=== PATIENT | female | born 1950 | race Caucasian/White ===

== ENCOUNTER 2016-10-04 05:36 | Inpatient (IN) | payer BC, OTHER ==
--- NOTE | 2016-10-04 05:38 | PDOC ---
History of Present Illness <LuisanaCornelio - Last Filed: 10/04/16 18:25> - General History Source: Patient Exam Limitations: No Limitations - History of Present Illness Initial Comments: 10/04/16 06:15 This is a 66-year-old female comes in complaining of severe epigastric abdominal pain. Patient has a history of a LAP-BAND that was placed approximately 8 years ago. Patient had an admission approximately one year ago. Patient after eating a large meal had acute onset of epigastric pain associated with vomiting. Patient denies any diarrhea. Patient said she had a revision of her lap band approximately year ago. Patient denies any history of similar symptoms in the past. PAST MEDICAL HISTORY: As per history of present illness PAST SURGICAL HISTORY: no significant history FAMILY HISTORY: no pertinant history SOCIAL HISTORY: Pt lives with family and is employed. MEDICATIONS: reviewed ALLERGIES: As per nursing notes Review of Systems General: No fevers or chills, no weakness, no weight loss HEENT: No change in vision. No sore throat,. No ear pain CardioVascular: No chest pain or shortness of breath Respiratory:No cough, or wheezing. Gastrointestinal: + nausea, + vomitting, no diarrhea or constipation, No rectal bleeding Genitourinary: No dysuria, hematuria, or frequency Musculoskeletal: No joint or muscle pain or swelling Neurologic: No headache, vertigo, dizziness or loss of consciousness Psychiatric: nor depression Skin: No rashes or easy bruising Endocrine: no increased thirst or abnormal weight change Allergic: no skin or latex allergy All other systems reviewed and normal Exam: General: Well-nourished well-developed individual, no acute distress HEENT: Throat: Normal, tonsils normal, no erythema or exudate Neck: Supple, no meningeal signs, no lymphadenopathy Eyes::Pupils equal reactive and round, extraocular motion intact Chest: Nontender to palpation Cardiac: S1-S2 normal, regular rate and rhythm, no murmurs rubs or gallops Respiratory: Lungs clear to auscultation bilateral Abdomen: Soft, decreased bowel sounds, tenderness on palpation epigastric area with some mild guarding and no rebound. Extremities: Warm, dry, no cyanosis, clubbing, or edema Skin: No rashes Neuro: Alert and oriented x3, nonfocal exam, grossly intact, normal gait Psych: Normal mood and affect CT scan shows 2 stones approximately 7 mm and distal common bile duct with a 1 cm duct diameter the gastric band is in good position there is some periportal edema otherwise is no bowel obstruction free fluid or free air. Assessment and plan: This is a 66-year-old female with abdominal pain who comes in for evaluation. Patient has an elevated white count of 16.6 with a left shift. Patient CAT scan shows 2 stones in the distal common bile duct. Patient's symptoms are most likely secondary to these gallstones. Patient has elevated white count of 16.6 with approximately 12 hours now of ongoing pain. Patient will be in need to be admitted to an inpatient bed. Patient given Zosyn here in the emergency room to cover her for acute cholecystitis Patient surgeon was called and they waiting for call back however changes shift resulted in me transferring the patient to Dr. Justin Tai or talking to the patient surgeon. Case discussed in detail with oncoming Emergency Physician including history, physical exam and ancillary studies. Oncoming Emergency Physician has assumed care for the patient and will complete the evaluation and treatment. Patient is aware of the plan. Pt is clinically unchanged and stable. <Evangelina Andrews I - Last Filed: 10/04/16 23:54> - General Stated Complaint: STOMACH PAIN Time Seen by Provider: 10/04/16 05:38 Past History <Cornelio Lieberman - Last Filed: 10/04/16 18:25> - Past Medical History Anemia: No Asthma: No Cancer: No Cardiac Disorders: No CVA: No COPD: No CHF: No Dementia: No Diabetes: No GI Disorders: No Disorders: No HTN: No Hypercholesterolemia: No Liver Disease: No Seizures: No Thyroid Disease: No - Surgical History Abdominal Surgery: Yes (HIATAL HERNIA REPAIR) Cholecystectomy: Yes GI Surgery: Yes (LAP BAND) - Psycho/Social/Smoking Cessation Hx Anxiety: No Suicidal Ideation: No Smoking History: Never smoked Hx Alcohol Use: Yes (OCCASIONAL) Drug/Substance Use Hx: No Substance Use Type: None <Evangelina Andrews I - Last Filed: 10/04/16 23:54> - Past Medical History Allergies/Adverse Reactions: Allergies Allergy/AdvReac Type Severity Reaction Status Date / Time pepper AdvReac Severe Verified 10/04/16 05:40 Home Medications: Ambulatory Orders Meloxicam [Mobic] 15 mg PO DAILY 10/04/16 Oxycodone HCl/Acetaminophen [Percocet 5-325 mg Tablet] 1 tab PO BID 10/04/16 Pantoprazole Sodium [Protonix] 40 mg PO DAILY 10/04/16 *Physical Exam - Vital Signs Last Vital Signs Temp Pulse Resp BP Pulse Ox 98.7 F 71 17 121/61 98 10/04/16 07:17 10/04/16 08:25 10/04/16 08:25 10/04/16 08:25 10/04/16 08:25 <Cornelio Lieberman - Last Filed: 10/04/16 18:25> ED Treatment Course - LABORATORY CBC & Chemistry Diagram: 10/04/16 06:00 10/04/16 06:00 - ADDITIONAL ORDERS Additional order review: Laboratory Results 10/04/16 06:00 Sodium 139 Potassium 3.8 Chloride 103 Carbon Dioxide 27 Anion Gap 9 BUN 14 D Creatinine 0.7 D Creat Clearance w eGFR > 60 Random Glucose 151 H D Calcium 9.1 Total Bilirubin 1.9 H D AST 597 H D ALT 331 H D Alkaline Phosphatase 175 H D Total Protein 7.0 D Albumin 3.7 D Lipase 144 10/04/16 06:00 RBC 4.97 MCV 81.3 MCHC 32.5 RDW 13.7 MPV 9.4 Neutrophils % 90.2 H D Lymphocytes % 3.5 L D Monocytes % 6.0 Eosinophils % 0.1 D Basophils % 0.2 - RADIOLOGY Radiology Studies Ordered: Category Date Time Status CHEST X-RAY PORTABLE* [RAD] Stat Radiology 10/04/16 08:00 Ordered - Medications Given in the ED: ED Medications Discontinued Medications Generic Name Dose Route Start Last Admin Trade Name Kevinq PRN Reason Stop Dose Admin Acetaminophen 1,000 mg 10/04/16 05:53 10/04/16 05:58 Ofirmev Injection - IVPB 10/04/16 05:54 1,000 mg ONCE ONE Administration Sodium Chloride 1,000 mls @ 1,000 mls/hr 10/04/16 06:14 10/04/16 06:25 Normal Saline - IV 10/04/16 07:13 1,000 mls/hr .Q1H ONE Administration Ketorolac Tromethamine 30 mg 10/04/16 06:31 10/04/16 06:41 Toradol Injection - IVPUSH 10/04/16 06:32 30 mg ONCE ONE Administration Morphine Sulfate 2 mg 10/04/16 06:14 10/04/16 06:40 Morphine Injection - IVPUSH 10/04/16 06:15 1 mg ONCE ONE Administration Morphine Sulfate 2 mg 10/04/16 07:32 10/04/16 07:38 Morphine Injection - IVPUSH 10/04/16 07:33 1 mg ONCE ONE Administration Ondansetron HCl 4 mg 10/04/16 06:14 10/04/16 06:40 Zofran Injection IVPUSH 10/04/16 06:15 4 mg ONCE ONE Administration Piperacillin Sod/Tazobactam Sod 3.375 gm 10/04/16 06:35 10/04/16 06:57 Zosyn 3.375gm Ivpb (Pre-Docked) IVPB 10/04/16 06:36 3.375 gm ONCE STA Administration Protocol <Cornelio Lieberman - Last Filed: 10/04/16 18:25> - LABORATORY CBC & Chemistry Diagram: 10/04/16 21:33 10/04/16 06:00 <Evangelina Andrews I - Last Filed: 10/04/16 23:54> Medical Decision Making - Medical Decision Making 10/04/16 08:[address] Graham, hospitalist. She will admit patient to [facility]. She is aware of the concern with cholangitis, and sepsis. Spoke with Dr. Leo, from gastroenterology. He is aware of the patient and will consult upon arrival at [facility]. The patient has received intravenous antibiotics. Her pain is controlled with morphine, and her pressure has been stabilized using small incremental doses of morphine as needed. She is also received intravenous Tylenol and Toradol. Dr. Hartley saw the patient in the emergency room. He is in communication with Dr. Roberts from the ICU. They are aware that the patient will be admitted to telemetry, but that ICU may be necessary if the condition worsens. Patient appears stable, clinically and hemodynamically, at present. Minimal pain at transport to [facility]. <Cornelio Lieberman - Last Filed: 10/04/16 18:25> *DC/Admit/Observation/Transfer - Discharge Dispostion Admit: Yes <Cornelio Lieberman - Last Filed: 10/04/16 18:25> <Evangelina Andrews I - Last Filed: 10/04/16 23:54> Diagnosis at time of Disposition: Cholelithiasis and acute cholecystitis with obstruction
[2016-10-04 05:46] VITALS: BMI 36.7
[2016-10-04] MEDS ORDERED: ACETAMINOPHEN INJECTION 100 ML IVPB ONE (05:53)
[2016-10-04] MEDS ORDERED: ACETAMINOPHEN 1000 MG/100 ML VIAL (NON FORMULARY) IVPB ONE (05:53)
[2016-10-04] MEDS ORDERED: SODIUM CHLORIDE 1,000 ML IV ONE (06:14)
[2016-10-04] MEDS ORDERED: ONDANSETRON 4 MG/2 ML VIAL IVPUSH ONE (06:14)
[2016-10-04] MEDS ORDERED: morphine CARPU-JECT 2 MG/1 ML DISP.SYRIN IVPUSH ONE ×4 (06:14→14:00)
[2016-10-04] MEDS ORDERED: ONDANSETRON 4 MG/2 ML VIAL ONE (06:21)
[2016-10-04] MEDS ORDERED: morphine CARPU-JECT 2 MG/1 ML DISP.SYRIN ONE ×2 (06:21→09:30)
[2016-10-04 06:28] LABS: BASOPHIL 0.2 % (0-2.0); EOSINOPHIL 0.1 % (0-4.5); MCH 26.4 pg (25.7-33.7); MCHC 32.5 g/dl (32.0-36.0); MEAN CELL VOLUME 81.3 fl (80-96); MEAN PLT VOLUME 9.4 fl (7.5-11.1); NEUTROPHILS 90.2 % (42.8-82.8); PLATELET COUNT 234 K/MM3 (134-434); RDW 13.7 % (11.6-15.6)
[2016-10-04] MEDS ORDERED: KETOROLAC TROMETHAMINE 30 MG/1 ML VIAL IVPUSH ONE ×2 (06:31→10:50)
[2016-10-04] MEDS ORDERED: KETOROLAC TROMETHAMINE 30 MG/1 ML VIAL ONE (06:31)
[2016-10-04] MEDS ORDERED: PIPERACILLIN/TAZOB 3.375 GM/50 ML PRE-DOCKED IVPB STA (06:35)
[2016-10-04] MEDS ORDERED: PIPERACILLIN/TAZOBACTAM 3.375 GM VIAL IVPB ONE (06:45)
[2016-10-04 06:51] LABS: ALBUMIN 3.7 g/dl (3.4-5.0); ALK PHOS 175 U/L (45-117); ANION GAP 9 (8-16); BILIRUBIN,TOTAL 1.9 mg/dL (0.2-1.0); CALCIUM 9.1 mg/dL (8.5-10.1); CO2 27 mmol/L (21-32); CREATININE 0.7 mg/dL (0.55-1.02); GLUCOSE,RANDOM 151 mg/dL (74-106); SGPT/ALT 331 U/L (12-78)
[2016-10-04 06:55] LABS: SGOT/AST 597 U/L (15-37)
[2016-10-04] MEDS ORDERED: PANTOPRAZOLE SODIUM 40 MG in SODIUM CHLORIDE 100 ML IVPB ONE (08:05)
[2016-10-04] MEDS ORDERED: PANTOPRAZOLE SODIUM 40 MG VIAL ONE (08:35)
[2016-10-04] MEDS ORDERED: SODIUM CHLORIDE 250 ML IV STA (10:41)
[2016-10-04] MEDS: SODIUM CHLORIDE 1,000 ML IV SCH (11:19)
[2016-10-04 11:29] LABS: URINE APPEARANCE Clear; URINE BILIRUBIN 2+ (NEGATIVE); URINE GLUCOSE (UA) Negative (NEGATIVE); URINE KETONE Trace (NEGATIVE); URINE LEUK ESTERASE Negative (NEGATIVE); URINE NITRITE Negative (NEGATIVE); URINE UROBILINOGEN 1.0 E.U/dl (0.2-1.0)
[2016-10-04 11:31] LABS: URINE BACTERIA FEW /hpf (NEGATIVE); URINE BLOOD 1+ (NEGATIVE); URINE COLOR YELLOW; URINE PROTEIN 1+ (NEGATIVE); URINE WBC 0-3 (3-5)
[2016-10-04] MEDS ORDERED: SODIUM CHLORIDE 1,000 ML IV STA (14:07)
[2016-10-04] MEDS ORDERED: PIPERACILLIN/TAZOB 3.375 GM/50 ML PRE-DOCKED IVPB ONE (14:30)
--- NOTE | 2016-10-04 14:37 | HP ---
CHIEF COMPLAINT: sudden onset epigastric pain with N/V/D PCP: HISTORY OF PRESENT ILLNESS: This is a 66yo woman with PMH lap band '10, lap choley 08/23 and b/l TKR who presented to ED with severe epigastric abdominal pain. Patient had an admission approximately one year ago. Patient after eating a large meal had acute onset of epigastric pain associated with vomiting. Patient denies any diarrhea. Patient said she had a revision of her lap band approximately year ago. Patient denies any history of similar symptoms in the past. ER course was notable for: (1) CTAP- choledocholithiasis with CBD dilitation (2) Lactic acidosis (3) Transaminitis Recent Travel: denies PAST MEDICAL HISTORY: see HPI PAST SURGICAL HISTORY: see HPI Social History: Smoking: denies Alcohol: social Drugs: denies Occupation: homemaker Family History: Allergies pepper Adverse Reaction (Severe, Verified 10/04/16 05:40) RAW BLACK PEPPER HOT FLASHES HOME MEDICATIONS: Home Medications 3 Medication Instructions Recorded Meloxicam [Mobic] 15 mg PO DAILY 10/04/16 Oxycodone HCl/Acetaminophen 1 tab PO BID 10/04/16 [Percocet 5-325 mg Tablet] Pantoprazole Sodium [Protonix] 40 mg PO DAILY 10/04/16 REVIEW OF SYSTEMS CONSTITUTIONAL: Present- chills Absent: fever, diaphoresis, generalized weakness, malaise, loss of appetite, weight change HEENT: Absent: rhinorrhea, nasal congestion, throat pain, throat swelling, difficulty swallowing, mouth swelling, ear pain, eye pain, visual changes CARDIOVASCULAR: Absent: chest pain, syncope, palpitations, irregular heart rate, lightheadedness , peripheral edema RESPIRATORY: Present- shortness of breath Absent: cough, dyspnea with exertion, orthopnea, wheezing, stridor, hemoptysis GASTROINTESTINAL: Present- abdominal pain, nausea, vomiting, diarrhea Absent: abdominal distension, constipation, melena, hematochezia GENITOURINARY: Absent: dysuria, frequency, urgency, hesitancy, hematuria, flank pain, genital pain MUSCULOSKELETAL: Absent: myalgia, arthralgia, joint swelling, back pain, neck pain SKIN: Absent: rash, itching, pallor HEMATOLOGIC/IMMUNOLOGIC: Absent: easy bleeding, easy bruising, lymphadenopathy, frequent infections ENDOCRINE: Absent: unexplained weight gain, unexplained weight loss, heat intolerance, cold intolerance NEUROLOGIC: Absent: headache, focal weakness or paresthesias, dizziness, unsteady gait, seizure, mental status changes, bladder or bowel incontinence PSYCHIATRIC: Absent: anxiety, depression, suicidal or homicidal ideation, hallucinations. PHYSICAL EXAMINATION Vital Signs - 24 hr 3 10/04/16 13:30 Temperature 99.4 F Pulse Rate 68 Respiratory 14 Rate Blood Pressure 98/62 GENERAL: Awake, alert, and fully oriented, in no acute distress. HEAD: Normal with no signs of trauma. EYES: Pupils equal, round and reactive to light, extraocular movements intact, sclera anicteric, conjunctiva clear. No lid lag. EARS, NOSE, THROAT: Ears normal, nares patent, oropharynx clear without exudates. Moist mucous membranes. NECK: Normal range of motion, supple without lymphadenopathy, JVD, or masses. LUNGS: Breath sounds equal, clear to auscultation bilaterally. No wheezes, and no crackles. No accessory muscle use. HEART: Regular rate and rhythm, normal S1 and S2 without murmur, rub or gallop. ABDOMEN: Soft, not distended, normoactive bowel sounds, no guarding, no rebound , no masses. No hepatomegaly or splenomegaly. Tender to upper abdomen. MUSCULOSKELETAL: Normal range of motion at all joints. No bony deformities or tenderness. No CVA tenderness. UPPER EXTREMITIES: 2+ pulses, warm, well-perfused. No cyanosis. No clubbing. No peripheral edema. LOWER EXTREMITIES: 2+ pulses, warm, well-perfused. No calf tenderness. No peripheral edema. NEUROLOGICAL: Cranial nerves II-XII intact. Normal speech. Normal gait. PSYCHIATRIC: Cooperative. Good eye contact. Appropriate mood and affect. SKIN: Warm, dry, normal turgor, no rashes or lesions noted, normal capillary refill. ASSESSMENT/PLAN: A: 66 yo woman with cholangitis s/p ERCP 10/04. GI unsure if all stones were removed during sphincterotomy d/t bleeding at site. P: 1. Cholangitis - LR@200 - NPO tonight - Zosyn 3.375 - Flagyl 500 - GI following - ID Luiz consulted - trend LFT's with lipase - trend CBC - lactic acid- 3.3 will continue to monitor 2. Sepsis - trend CBC - strict I&O - abx as above - ID consult - trend lactate - telemetry - blood and urine cx pending - LR@200 - VS q2h 3. Lactic Acidosis - trend lactate 4. F/E/N - LR@200 - NPO tonight - advance diet per GI - replete prn 5. PPX - OOB as tolerated - PT Dispo- pt requires inpatient care for acute medical condition Visit type - Emergency Visit Emergency Visit: Yes ED Registration Date: 10/04/16 Care time: The patient presented to the Emergency Department on the above date and was hospitalized for further evaluation of their emergent condition. - New Patient This patient is new to me today: Yes Date on this admission: 10/04/16 - Critical Care Critical Care patient: No
[2016-10-04] MEDS ORDERED: ROCURONIUM BROMIDE 50 MG/5 ML VIAL ONE ×2 (14:39→15:18)
[2016-10-04] MEDS ORDERED: PROPOFOL 20 ML ONE (14:39)
[2016-10-04] MEDS ORDERED: ePHEDrine SULFATE 50 MG/1 ML AMPULE ONE (14:39)
--- NOTE | 2016-10-04 14:40 | CON.PULM ---
Consult Consult Specialty:: PULMONARY Referred by:: Hospitalist Reason for Consultation:: sepsis - History of Present Illness Chief Complaint: abdominal pain History of Present Illness: 66yo female with h/o lap-band, cholecystectomy who presents with sudden onset of abdominal pain after eating dinner yesterday. Pain more right upper quadrant associated with nausea, vomiting and diarrhea. Subjective fevers and chills. Denies any shortness of breath or chest pain. Denies any prior episodes, did not eat anything out of the ordinary. No one else with similar symptoms. CT A/P showing common bile duct prominence as well as cholelithiasis, received IVF and antibiotics, transferred to telemetry for further monitoring. Bloodwork significant for elevated LFTs, lactic acidosis and leukocytosis. - History Source History Provided By: Patient, Significant Other, Medical Record Limitations to Obtaining History: No Limitations - Past Medical History Gastrointestinal: Yes: Hiatal Hernia, Other (Morbid obesity, History of cholecystitis) Hepatobiliary: Yes: Cholecystitis Dermatology: Yes: Psoriasis - Past Surgical History Past Surgical History: Yes: Bariatric Surgery (Lap band), Hernia Repair (Hiatal hernia repair) - Alcohol/Substance Use Hx Alcohol Use: Yes (OCCASIONAL) - Smoking History Smoking history: Never smoked Have you smoked in the past 12 months: No - Social History ADL: Independent Home Medications - Allergies Allergies/Adverse Reactions: Allergies Allergy/AdvReac Type Severity Reaction Status Date / Time pepper AdvReac Severe Verified 10/04/16 05:40 - Home Medications Home Medications: Ambulatory Orders Meloxicam [Mobic] 15 mg PO DAILY 10/04/16 Oxycodone HCl/Acetaminophen [Percocet 5-325 mg Tablet] 1 tab PO BID 10/04/16 Pantoprazole Sodium [Protonix] 40 mg PO DAILY 10/04/16 Review of Systems - Review of Systems Constitutional: reports: Chills, Fever, Malaise Eyes: denies: Recent Change in Vision HENT: denies: Nasal Congestion, Throat Pain Neck: denies: Stiffness, Tenderness Cardiovascular: denies: Chest Pain, Palpitations, Shortness of Breath Respiratory: denies: Cough, Hemoptysis, SOB on Exertion, Wheezing Gastrointestinal: reports: Abdominal Pain, Diarrhea, Nausea, Vomiting Genitourinary: denies: Dysuria, Hematuria Neurological: denies: Dizziness, Headache Endocrine: denies: Unexplained Weight Gain, Unexplained Weight Loss Physical Exam Vital Sings: Vital Signs Temperature 99.4 F 10/04/16 13:30 Pulse Rate 68 10/04/16 13:30 Respiratory Rate 14 10/04/16 13:30 Blood Pressure 98/62 10/04/16 13:30 O2 Sat by Pulse Oximetry (%) 94 L 10/04/16 10:11 Constitutional: Yes: Calm Eyes: Yes: Conjunctiva Clear, EOM Intact HENT: Yes: Atraumatic, Normocephalic Neck: Yes: Supple, Trachea Midline Cardiovascular: Yes: Regular Rate and Rhythm Respiratory: Yes: Regular, CTA Bilaterally ...Clubbing: No Gastrointestinal: Yes: Normal Bowel Sounds, Soft, Tenderness (RUQ). No: Tenderness, Rebound Edema: No Peripheral Pulses WNL: Yes Neurological: Yes: Alert, Oriented Imaging - Results Cat Scan: Report Reviewed, Image Reviewed Problem List - Problems (1) Cholangitis Code(s): K83.0 - CHOLANGITIS (2) Sepsis Code(s): A41.9 - SEPSIS, UNSPECIFIED ORGANISM (3) Lactic acidosis Code(s): E87.2 - ACIDOSIS (4) Choledocholithiasis Code(s): K80.50 - CALCULUS OF BILE DUCT W/O CHOLANGITIS OR CHOLECYST W/O OBST Assessment/Plan r/o Acute Cholangitis Choledocholithiasis Sepsis Lactic Acidosis - IV antibiotics - f/u cultures - ID evaluation - IVF - trend lactate - pain control - GI evaluation - can monitor on telemetry - will follow with you, please call if any change in condition Thank you for this consult Hugo Roberts MD
[2016-10-04] MEDS ORDERED: morphine CARPU-JECT 2 MG/1 ML DISP.SYRIN IVPUSH PRN (14:43)
[2016-10-04] MEDS ORDERED: INDOMETHACIN 50 MG RECTAL SUPPOSITORY PR ONE ×2 (15:00→15:34)
[2016-10-04] MEDS ORDERED: NEOSTIGMINE METHYLSULFATE 0.5 MG/ML - 10 ML MDV ONE (15:18)
[2016-10-04] MEDS ORDERED: GLYCOPYRROLATE 0.2 MG/1 ML VIAL ONE ×5 (15:18)
[2016-10-04] MEDS ORDERED: ESMOLOL HCL 10 ML ONE (15:41)
[2016-10-04] MEDS ORDERED: LACTATED RINGERS SOLUTION 1,000 ML IV SCH ×2 (16:00→17:15)
[2016-10-04] MEDS ORDERED: ONDANSETRON 4 MG/2 ML VIAL IVPUSH PRN (16:00)
--- NOTE | 2016-10-04 16:25 | PN ---
Progress Note (short form) - Note Progress Note: GI Procedure NOte: Given the hypotension and lactic acidosis indicative of advanced ascending cholangitis the procedure was taken before the consultation could be written and which therefore follows. Please see ERCP report. Pus and stones were extracted from the CBD. Postextraction bleeding was controlled with epinephrine injection. Findings discussed with patient and her , Need to observe for pancreatitis. Will order ID consultation. Expect gram negative bacteremia.
--- NOTE | 2016-10-04 16:31 | CON.GI ---
Consult Consult Specialty:: Gastroenterology Referred by:: ER in [facility] Reason for Consultation:: Abdominal pain - History of Present Illness Chief Complaint: Abdominal pain History of Present Illness: 66W presented to the [facility] with abdominal pain, hypotension and abnormal LFTs. CT scan revealed a dilated CBD and suggested distal CBD stones. She is transferred here for ERCP. She is s/p lap choly, lap band, Alesha fundoplication , abdominoplasty and C section. She has never had pancreatitis before. She had colonoscopy with Dr Looney. Her mother had colon cancer. - History Source History Provided By: Patient Limitations to Obtaining History: No Limitations - Past Medical History Gastrointestinal: Yes: Hiatal Hernia (s/p Alesha fundoplication), Other (Lap band bariatric ) Hepatobiliary: Yes: Cholecystitis (s/p lap choly), Choledocholithiasis Rheumatology: Yes: Other (osteoarthritis) Endocrine: Yes: Dickenson's Disease - Past Surgical History Past Surgical History: Yes: Bariatric Surgery (Lap band), Cholecystectomy ( laparoscopic), Colonoscopy, , Hernia Repair (Hiatal hernia repair- Alesha fundoplication), Joint Replacement (bilateral knee replacements) Additional Surgical History: abdominoplasty and eyelid lifts surgeries - Alcohol/Substance Use Hx Alcohol Use: Yes (OCCASIONAL) - Smoking History Smoking history: Former smoker (quit 1990) Have you smoked in the past 12 months: No - Social History Usual Living Arrangement: With Spouse ADL: Independent Occupation: sales Place of : [facility] History of Recent Travel: No Home Medications - Allergies Allergies/Adverse Reactions: Allergies Allergy/AdvReac Type Severity Reaction Status Date / Time pepper AdvReac Severe Verified 10/04/16 05:40 - Home Medications Home Medications: Ambulatory Orders Meloxicam [Mobic] 15 mg PO DAILY 10/04/16 Oxycodone HCl/Acetaminophen [Percocet 5-325 mg Tablet] 1 tab PO BID 10/04/16 Pantoprazole Sodium [Protonix] 40 mg PO DAILY 10/04/16 Family Disease History - Family Disease History Family Disease History: CA: Mother (colon cancer ), Other: Father (CVA) Review of Systems - Review of Systems Constitutional: reports: No Symptoms Eyes: reports: No Symptoms HENT: reports: No Symptoms Neck: reports: No Symptoms Cardiovascular: reports: No Symptoms Respiratory: reports: No Symptoms Gastrointestinal: reports: Abdominal Pain Musculoskeletal: reports: Joint Pain Neurological: reports: No Symptoms Physical Exam-GI Vital Signs: Vital Signs Temperature 98.4 F 10/04/16 16:00 Pulse Rate 90 10/04/16 16:15 Respiratory Rate 20 10/04/16 16:15 Blood Pressure 133/76 10/04/16 16:15 O2 Sat by Pulse Oximetry (%) 96 10/04/16 16:15 CBC,CMP WBC 16.0 K/mm3 (4.0-10.0) H D 10/04/16 06:00 RBC 4.97 M/mm3 (3.60-5.2) 10/04/16 06:00 Hgb 13.1 GM/dL (10.7-15.3) D 10/04/16 06:00 Hct 40.4 % (32.4-45.2) 10/04/16 06:00 MCV 81.3 fl (80-96) 10/04/16 06:00 MCHC 32.5 g/dl (32.0-36.0) 10/04/16 06:00 RDW 13.7 % (11.6-15.6) 10/04/16 06:00 Plt Count 234 K/MM3 (134-434) 10/04/16 06:00 MPV 9.4 fl (7.5-11.1) 10/04/16 06:00 Neutrophils % 90.2 % (42.8-82.8) H D 10/04/16 06:00 Lymphocytes % 3.5 % (8-40) L D 10/04/16 06:00 Monocytes % 6.0 % (3.8-10.2) 10/04/16 06:00 Eosinophils % 0.1 % (0-4.5) D 10/04/16 06:00 Basophils % 0.2 % (0-2.0) 10/04/16 06:00 Sodium 139 mmol/L (136-145) 10/04/16 06:00 Potassium 3.8 mmol/L (3.5-5.1) 10/04/16 06:00 Chloride 103 mmol/L (98-107) 10/04/16 06:00 Carbon Dioxide 27 mmol/L (21-32) 10/04/16 06:00 Anion Gap 9 (8-16) 10/04/16 06:00 BUN 14 mg/dL (7-18) D 10/04/16 06:00 Creatinine 0.7 mg/dL (0.55-1.02) D 10/04/16 06:00 Creat Clearance w eGFR > 60 (>60) 10/04/16 06:00 Random Glucose 151 mg/dL (74-106) H D 10/04/16 06:00 Lactic Acid 3.3 mmol/L (0.4-2.0) H* 10/04/16 11:45 Calcium 9.1 mg/dL (8.5-10.1) 10/04/16 06:00 Total Bilirubin 1.9 mg/dL (0.2-1.0) H D 10/04/16 06:00 AST 597 U/L (15-37) H D 10/04/16 06:00 ALT 331 U/L (12-78) H D 10/04/16 06:00 Alkaline Phosphatase 175 U/L (45-117) H D 10/04/16 06:00 Total Protein 7.0 g/dl (6.4-8.2) D 10/04/16 06:00 Albumin 3.7 g/dl (3.4-5.0) D 10/04/16 06:00 Lipase 144 U/L (73-393) 10/04/16 06:00 Current Medications Generic Name Dose Route Start Last Admin Trade Name Freq PRN Reason Stop Dose Admin Fentanyl 25 mcg 10/04/16 16:00 Sublimaze Injection - IVPUSH 10/07/16 16:01 [id number] PRN PAIN Sodium Chloride 1,000 mls @ 150 mls/hr 10/04/16 10:45 10/04/16 11:19 Normal Saline - IV 150 mls/hr ASDIR SOM Administration Lactated Ringer's 1,000 mls @ 75 mls/hr 10/04/16 16:00 Lactated Ringers Solution IV ASDIR SOM Metronidazole 100 mls @ 100 mls/hr 10/04/16 18:00 Flagyl 500mg Premixed Ivpb - IVPB Q8H-IV SOM Indomethacin 50 mg 10/04/16 15:00 Indocin Suppository - DE 10/04/16 15:01 ONCE ONE Morphine Sulfate 2 mg 10/04/16 14:43 Morphine Injection - IVPUSH Q4H PRN PAIN Ondansetron HCl 4 mg 10/04/16 16:00 Zofran Injection IVPUSH 10/04/16 22:01 Q6H PRN NAUSEA AND/OR VOMITING Piperacillin Sod/Tazobactam Sod 3.375 gm 10/04/16 18:00 Zosyn 3.375gm Ivpb (Pre-Docked) IVPB Q8H-IV SOM Protocol Constitutional: Yes: Well Nourished, Anxious Eyes: Yes: EOM Intact HENT: Yes: Atraumatic Neck: Yes: Supple Cardiovascular: Yes: Regular Rate and Rhythm Respiratory: Yes: CTA Bilaterally Gastrointestinal Inspection: Yes: Scars (healed laparoscopic, low transverse abdominoplasty incisions), Other (palpable lap band balloon) ...Auscultate: Yes: Normoactive Bowel Sounds ...Palpate: Yes: Soft, Other (nontender) ...Percussion: Yes: Other ...Rectal Exam: Yes: Deferred Edema: No Peripheral Pulses WNL: Yes Neurological: Yes: Alert, Oriented Psychiatric: Yes: Alert Imaging - Results Cat Scan: Report Reviewed (EXAM#: TYPE/EXAM: RESULT: [id number] CT/ABDOMEN PELVIS CT W/O CONTR HISTORY PROVIDED: Abdominal pain TECHNIQUE: Sequential axial images were obtained from the domes of the diaphragm through the symphysis pubis. The study is markedly limited without the use of any contrast material. The lung bases are clear. The patient is S/P gastric banding. The band appears to be in adequate position around the proximal stomach. The liver, spleen, pancreas, adrenal glands and kidneys demonstrate no gross abnormalities. The gallbladder has been removed. There is prominence of the common bile duct which measures approximately 1.3 cm. There is also faint hyperdensities within the distal CBD which could represent choledocholithiasis. Follow-up ultrasonography and/or MRCP now recommended. There is no evidence of intra-abdominal or retroperitoneal lymphadenopathy or fluid collections. There is no evidence of pneumoperitoneum, bowel obstruction or intra-abdominal abscess. There is no CT evidence of acute appendicitis or diverticulitis. Examination of the pelvis demonstrates no evidence of pelvic masses, fluid collections or lymphadenopathy. The uterus has been removed. There is no evidence of acute bony pathology. IMPRESSION: Limited study, S/P gastric banding and cholecystectomy. There is prominence of the CBD with possible choledocholithiasis. Clinical correlation and follow-up recommended. Please see above discussion.) Assessment/Plan Ascending cholangitis due to choledocholithiasis requiring emergent ERCP. I discussed ERCP with sphincterotomy, stone extraction and possible stenting in detail with Carmina and her . The potential for such complications as perforation, hemorrhage and pancreatitis with multiorgan failure was discussed with Carmina and her . She signed an informed consent. This consult is being written after the procedure which revealed pus and stones in the bile duct which were extracted. Postextraction sphincterotomy bleeding was controlled with epinephrine. Flagyl added to regimen. Indocin was given. Will consult ID. Anticipate gm negative bacteremia. Will do colonoscopy followup with Dr Looney.
[2016-10-04] MEDS: METRONIDAZOLE 500 MG PREMIXED 100 ML IVPB SCH (17:53)
[2016-10-04] MEDS ORDERED: PIPERACILLIN/TAZOB 3.375 GM/50 ML PRE-DOCKED IVPB SCH (18:00)
[2016-10-04] MEDS ORDERED: IBUPROFEN 600 MG TABLET (FP) PO ONE (20:16)
[2016-10-04 22:06] LABS: MCH 26.5 pg (25.7-33.7); MCHC 32.1 g/dl (32.0-36.0); MEAN CELL VOLUME 82.4 fl (80-96); MEAN PLT VOLUME 9.3 fl (7.5-11.1); PLATELET COUNT 196 K/MM3 (134-434); RDW 14.1 % (11.6-15.6)
[2016-10-05] MEDS: LACTATED RINGERS SOLUTION 1,000 ML IV SCH ×2 (00:55→02:06)
[2016-10-05] MEDS: METRONIDAZOLE 500 MG PREMIXED 100 ML IVPB SCH ×3 (01:01→18:20)
[2016-10-05] MEDS ORDERED: LACTATED RINGERS SOLUTION 1,000 ML IV SCH ×2 (07:15→15:17)
[2016-10-05 08:06] LABS: BASOPHIL 0.3 % (0-2.0); EOSINOPHIL 1.5 % (0-4.5); MCH 26.9 pg (25.7-33.7); MCHC 32.7 g/dl (32.0-36.0); MEAN CELL VOLUME 82.2 fl (80-96); MEAN PLT VOLUME 9.5 fl (7.5-11.1); NEUTROPHILS 84.8 % (42.8-82.8); PLATELET COUNT 169 K/MM3 (134-434); RDW 13.9 % (11.6-15.6); WHITE BLOOD COUNT 16.9 K/mm3 (4.0-10.0)
[2016-10-05 08:23] LABS: INR 1.2 (0.82-1.09); PROTHROMBIN TIME (PATIENT) 13.3 SEC (9.98-11.88)
[2016-10-05] MEDS ORDERED: PIPERACILLIN/TAZOB 3.375 GM 3.375 GM in DEXTROSE 5%-WATER - 50 ML IVPB ONE (08:36)
[2016-10-05 08:39] LABS: ALBUMIN 2.6 g/dl (3.4-5.0); AMYLASE 68 U/L (25-115); ANION GAP 8 (8-16); C-REACTIVE PROTEIN 12.5 MG/DL (0.00-0.3); CALCIUM 8.4 mg/dL (8.5-10.1); CO2 27 mmol/L (21-32); CREATININE 0.6 mg/dL (0.55-1.02); GLUCOSE,RANDOM 92 mg/dL (74-106); SGOT/AST 172 U/L (15-37); SGPT/ALT 267 U/L (12-78); TOT PROT 5.2 g/dl (6.4-8.2)
[2016-10-05 08:46] LABS: ALK PHOS 122 U/L (45-117); BILIRUBIN,TOTAL 3.9 mg/dL (0.2-1.0)
[2016-10-05] MEDS: SODIUM CHLORIDE 1,000 ML IV SCH ×3 (09:12→21:13)
[2016-10-05] MEDS: PANTOPRAZOLE 40 MG TABLET (FP) PO SCH (09:33)
[2016-10-05] MEDS ORDERED: IBUPROFEN 800 MG/8 ML IJ IVPB PRN (09:59)
[2016-10-05 10:25] LABS: BILIRUBIN,DIRECT 2.9 mg/dL (0.0-0.2)
[2016-10-05] MEDS ORDERED: IBUPROFEN 600 MG TABLET (FP) PO PRN (10:28)
[2016-10-05] MEDS: PIPERACILLIN/TAZOB 3.375 GM 50 ML IVPB SCH ×2 (10:57→17:26)
--- NOTE | 2016-10-05 11:38 | PN ---
Progress Note (short form) - Note Progress Note: ID Consult dictated Gram Negative bacteremia/ Biliary sepsis S/P ERCP/ Stone extraction Cholangitis Lactic acidosis Leukocytosis Elevated LFTs Pending identification of blood isolate, empiric zosyn/ flagyl
--- NOTE | 2016-10-05 12:05 | CONS ---
INFECTIOUS DISEASE CONSULTATION DATE OF CONSULTATION: DATE OF DICTATION: 10/05/2016 HISTORY OF PRESENT ILLNESS: The patient is a 66-year-old female status post cholecystectomy, who is evaluated for gram-negative sepsis. The patient had undergone a laparoscopic cholecystectomy 1 year ago. She was admitted to the hospital on October 04, 2016, with severe postprandial epigastric abdominal pain, nausea, and vomiting. She presented to the emergency room where she was noted to have a white blood cell count of 16.9 with a left shift. CAT scan of the abdomen and pelvis showed 2 stones in the distal common bile duct with dilation of the common bile duct. She was empirically treated with Zosyn and Flagyl. The patient underwent an ERCP and sphincterotomy and multiple stones were extracted from the common bile duct as well as pus. Blood cultures are now positive for gram-negative rods. The patient reports improvement in her abdominal pain. She denies any recurrent nausea or vomiting. She has been afebrile. PAST MEDICAL HISTORY: Positive for morbid obesity status post laparoscopic gastric band 8 years ago with a recent revision, history of [place] disease, psoriasis previously on Enbrel, osteoarthritis, and hiatal hernia. PAST SURGICAL HISTORY: Status post cholecystectomy, section, and bilateral total knee replacements. ALLERGIES: PEPPER. MEDICATIONS: Mobic, oxycodone, and Protonix. SOCIAL HISTORY: She lives in the community. She is a nonsmoker and nondrinker. SYSTEMS REVIEW: Neurologic: No loss of consciousness, seizure activity, or focal weakness. Cardiac: Negative chest pain or palpitations. Respiratory: Negative cough or sputum production. Gastrointestinal: As per history of present illness. Genitourinary: Negative for urinary tract infection. LABORATORY DATA: White count of 16.9, 84 neutrophils, 6 lymphocytes, 6 monocytes, hematocrit of 34.0, and platelet count of 169. BUN of 12, creatinine of 0.6, total bilirubin of 3.9, alkaline phosphatase of 122, and AST of 172. Lipase of 168. Lactic acid of 5.2. Blood cultures with gram-negative rods. PHYSICAL EXAMINATION: General Appearance: The patient is awake and alert. She is in no acute distress. She is not acutely toxic appearing. Vital Signs: Temperature of 98.2, blood pressure of 114/58, pulse of 83 and regular, and respirations of 20 per minute. HEENT: Sclerae are anicteric. Cardiovascular: Heart sound S1, S2. Lungs: Clear bilaterally. Abdomen: Obese. Healed surgical scars corresponding to previous laparoscopic cholecystectomy. Abdomen is soft, no tenderness elicited. No mass, rebound, or rigidity. Extremities: Edema 1+. Bilateral knee scars. IMPRESSION: 1. Gram-negative bacteremia/biliary sepsis. 2. Status post endoscopic retrograde cholangiopancreatography with sphincterotomy and extraction of common bile duct stones. 3. Cholangitis. 4. Lactic acidosis. 5. Marked leukocytosis. 6. Elevated liver enzymes. Await identification of blood isolette. Continue empiric Zosyn and Flagyl pending cultures. Will follow. Thank you for the kind referral. BRIE AYON M.D. [id number]
--- NOTE | 2016-10-05 15:25 | PN ---
Physical Exam: SUBJECTIVE: Patient seen and examined at bedside. No overnight events. No new complaints. POD#1 s/p ERCP. Pain well controlled. Denies CP, LANG, SOB, palpitation, N/V. OBJECTIVE: Vital Signs Period Temp Pulse Resp BP Sys/Kumar Pulse Ox Last 24 Hr 98.0 F-99.0 F 63-92 14-23 99-155/58-86 96-100 GENERAL: AAOx3, NAD HEAD: NC/AT EYES: PERRL, EOMI, sclera anicteric, conjunctiva clear. No ptosis. ENT:moist mucous membranes. NECK: Supple, no jvd LUNGS: CTAB , no wheezing or rales HEART:RRR, S1S2 ABDOMEN: Soft, RUQ tenderness, ND, BS(+), no rebound or guarding. EXTREMITIES: 2+ pulses, warm, well-perfused, no edema. NEUROLOGICAL: Cranial nerves II through XII grossly intact. Normal speech, gait not observed. Laboratory Results - last 24 hr 10/04/16 10/05/16 10/05/16 21:33 06:02 06:02 WBC 25.0 H D 16.9 H D RBC 4.31 4.14 Hgb 11.4 D 11.1 Hct 35.5 34.0 MCV 82.4 82.2 MCHC 32.1 32.7 RDW 14.1 13.9 Plt Count 196 169 MPV 9.3 9.5 Neutrophils % 84.8 H Lymphocytes % 6.9 L D Monocytes % 6.5 Eosinophils % 1.5 D Basophils % 0.3 INR Sodium 144 Potassium 3.7 Chloride 109 H Carbon Dioxide 27 Anion Gap 8 BUN 12 Creatinine 0.6 Creat Clearance w eGFR > 60 Random Glucose 92 D Lactic Acid Calcium 8.4 L Total Bilirubin 3.9 H D Direct Bilirubin 2.9 H AST 172 H D ALT 267 H Alkaline Phosphatase 122 H D C-Reactive Protein 12.5 H Total Protein 5.2 L D Albumin 2.6 L D Total Amylase 68 Lipase 78 10/05/16 10/05/16 10/05/16 06:02 06:02 09:50 WBC RBC Hgb Hct MCV MCHC RDW Plt Count MPV Neutrophils % Lymphocytes % Monocytes % Eosinophils % Basophils % INR 1.20 H Sodium Potassium Chloride Carbon Dioxide Anion Gap BUN Creatinine Creat Clearance w eGFR Random Glucose Lactic Acid 2.3 H* Calcium Total Bilirubin Direct Bilirubin Cancelled AST ALT Alkaline Phosphatase C-Reactive Protein Total Protein Albumin Total Amylase Lipase Active Medications Generic Name Dose Route Start Last Admin Trade Name Freq PRN Reason Stop Dose Admin Docusate Sodium 100 mg 10/05/16 22:00 Colace - PO TID SOM Fentanyl 25 mcg 10/04/16 16:00 Sublimaze Injection - IVPUSH 10/07/16 16:01 [id number] PRN PAIN Sodium Chloride 1,000 mls @ 150 mls/hr 10/04/16 10:45 10/05/16 09:12 Normal Saline - IV 150 mls/hr ASDIR SOM Administration Metronidazole 100 mls @ 100 mls/hr 10/04/16 18:00 10/05/16 09:35 Flagyl 500mg Premixed Ivpb - IVPB 100 mls/hr Q8H-IV SOM Administration Piperacillin Sod/Tazobactam Sod 50 mls @ 100 mls/hr 10/05/16 11:00 10/05/16 10: 57 Zosyn 3.375gm Ivpb (Pre-Docked) IVPB 100 mls/hr Q8H-IV SOM Administration Protocol Lactated Ringer's 1,000 mls @ 75 mls/hr 10/05/16 15:17 Lactated Ringers Solution IV ASDIR SOM Ibuprofen 600 mg 10/05/16 10:28 10/05/16 10:42 Motrin - PO 600 mg Q8H PRN Administration PAIN Indomethacin 50 mg 10/04/16 15:00 Indocin Suppository - [place] 10/04/16 15:01 ONCE ONE Morphine Sulfate 2 mg 10/04/16 14:43 Morphine Injection - IVPUSH Q4H PRN PAIN Oxycodone HCl 5 mg 10/05/16 15:17 Roxicodone - PO Q6H PRN PAIN Pantoprazole Sodium 40 mg 10/05/16 10:00 10/05/16 09:33 Protonix - PO 40 mg DAILY SOM Administration ASSESSMENT/PLAN: 66 y/o F with h/o CCY who presented with fever and RUQ pain admitted for sepsis secondary to acute cholangitis. Problem List - Problems (1) Sepsis Assessment/Plan: * Secondary to Acute cholangitis * IVF with NS @ 75ml/hr * repeat lactic acid in AM * Continue Zosyn and Flagyl * Cultures pending. * ID consult appreciated. (2) Cholangitis Assessment/Plan: * S/P ERCP with stone removal and drainage. * Advance diet * repeat CMP in AM * pain control (3) Lactic acidosis Assessment/Plan: * improved with IVF * repeat in AM Visit type - Emergency Visit Emergency Visit: Yes ED Registration Date: 10/04/16 Care time: The patient presented to the Emergency Department on the above date and was hospitalized for further evaluation of their emergent condition. - New Patient This patient is new to me today: Yes Date on this admission: 10/05/16 - Critical Care Critical Care patient: No - Discharge Referral Referred to [facility] No
--- NOTE | 2016-10-05 15:30 | PN ---
GI Progress Note Subjective: No acute events No abdominal pain No BM S/P ERCP s/p sphincterotomy: pus and stones extracted Complains of chronic right knee pain - Objective Vital Signs: Vital Signs Temperature 98.2 F 10/05/16 09:15 Pulse Rate 63 10/05/16 09:15 Respiratory Rate 20 10/05/16 09:15 Blood Pressure 114/58 10/05/16 09:15 O2 Sat by Pulse Oximetry (%) 100 10/04/16 21:00 Constitutional: Calm Eyes: No: Sclera Icterus Cardiovascular: Yes: Regular Rate and Rhythm Respiratory: Yes: CTA Bilaterally Gastrointestinal Inspection: Yes: Scars, Other (palpable lap band port in right upper abdomen). No: Distention ...Auscultate: Yes: Normoactive Bowel Sounds ...Palpate: Yes: Tenderness (mild TTP upper abdomen). No: Guarding, Hepatomegaly, Tenderness, Epigastium ...Percussion: No: Tympanitic Edema: Yes Edema: LLE: Trace, RLE: 1+ Neurological: Yes: Alert, Oriented Labs: CBC, BMP 10/05/16 06:02 10/05/16 06:02 INR, PTT INR 1.20 (0.82-1.09) H 10/05/16 06:02 Problem List - Problems (1) Cholangitis Assessment/Plan: S/P ERCP with stone and pus extraction. Doing well clinically. No evidence of post ERCP pancreatitis Bacteremia noted Bump in bilurubin noted. This may reflect direct hyperbilirubinemia of sepsis in setting of bacteremia or swelling and papilla. Would monitor for now Tolerating PO D/C NSAID analgesia in setting of polypectomy with oozing of blood post polypectomy. patient states that she uses percocet at home for knee pain Monitor LFTs Will follow with you Code(s): K83.0 - CHOLANGITIS
--- NOTE | 2016-10-05 15:51 | PN ---
Progress Note (short form) - Note Progress Note: Anesthesia postop note 66 y/o F s/p ga for ercp POD#1, vss, aaox3, ambulating, pain well controlled, swollen upper lip, not painful. No anesthesia complications.
[2016-10-05] MEDS: oxyCODONE HCL 5 MG TABLET PO PRN (16:19)
--- NOTE | 2016-10-05 20:03 | PN ---
Teaching Attending Note Name of Resident: Axel Esquivel ATTENDING PHYSICIAN STATEMENT I saw and evaluated the patient. I reviewed the resident's note and discussed the case with the resident. I agree with the resident's findings and plan as documented. SUBJECTIVE: RUQ abd pain. no fever , feels better at time of eval 10 am OBJECTIVE: NAD Cv : RRR Lungs : CTAB ext : no edema Abd : soft, Nl BS , TTP in RUQ . no rebound tenderness ro guarding ASSESSMENT AND PLAN: 66 y/o lady with h/o CCY who presented with fever , and not feeling well , she was found to have ascending cholangitis 1- Acute cholangitis : with severe sepsis and G- bacteremia - will repeat blood cx in AM - cont zosyna dn flagyl - IVF to 75 cc /hr - repeat lactic - follow LFTS - pAIN CONTROL
[2016-10-05] MEDS: DOCUSATE SODIUM 100 MG CAPSULE (FP) PO SCH (21:13)
[2016-10-06] MEDS: METRONIDAZOLE 500 MG PREMIXED 100 ML IVPB SCH ×3 (01:25→17:26)
[2016-10-06] MEDS: PIPERACILLIN/TAZOB 3.375 GM 50 ML IVPB SCH ×2 (02:30→09:30)
[2016-10-06] MEDS: DOCUSATE SODIUM 100 MG CAPSULE (FP) PO SCH ×3 (05:56→22:04)
[2016-10-06 07:17] LABS: BASOPHIL 0.4 % (0-2.0); EOSINOPHIL 2.4 % (0-4.5); MCH 27.2 pg (25.7-33.7); MCHC 33.4 g/dl (32.0-36.0); MEAN CELL VOLUME 81.5 fl (80-96); MEAN PLT VOLUME 9.4 fl (7.5-11.1); NEUTROPHILS 73.8 % (42.8-82.8); PLATELET COUNT 204 K/MM3 (134-434); WHITE BLOOD COUNT 9.2 K/mm3 (4.0-10.0)
[2016-10-06 08:57] LABS: ALK PHOS 143 U/L (45-117); AMYLASE 82 U/L (25-115); ANION GAP 10 (8-16); BILIRUBIN,DIRECT 2.1 mg/dL (0.0-0.2); BILIRUBIN,TOTAL 2.7 mg/dL (0.2-1.0); CALCIUM 9.6 mg/dL (8.5-10.1); CO2 26 mmol/L (21-32); CREATININE 0.6 mg/dL (0.55-1.02); GLUCOSE,RANDOM 100 mg/dL (74-106); SGOT/AST 92 U/L (15-37); SGPT/ALT 206 U/L (12-78)
[2016-10-06 09:22] LABS: C-REACTIVE PROTEIN 9.3 MG/DL (0.00-0.3)
[2016-10-06] MEDS: PANTOPRAZOLE 40 MG TABLET (FP) PO SCH (09:31)
--- NOTE | 2016-10-06 12:17 | PN ---
Progress Note (short form) - Note Progress Note: Resting in NAD on 2L NC O2. Abdominal symptoms improving. No acute events overnight. Intake & Output 10/03/16 10/04/16 10/05/16 10/06/16 23:59 23:59 23:59 23:59 Intake Total 3100 2650 1100 Balance 3100 2650 1100 Weight 214 lb Last Vital Signs Temp Pulse Resp BP Pulse Ox 99.7 F H 89 20 158/94 97 10/06/16 08:11 10/06/16 08:11 10/06/16 08:11 10/06/16 08:11 10/06/16 08:00 Active Medications Docusate Sodium (Colace -) 100 mg PO TID [facility] Last Admin: 10/06/16 05:56 Dose: 100 mg Fentanyl (Sublimaze Injection -) 25 mcg IVPUSH [id number] PRN PRN Reason: PAIN Stop: 10/07/16 16:01 Metronidazole (Flagyl 500mg Premixed Ivpb -) 100 mls @ 100 mls/hr IVPB Q8H-IV SOM Last Admin: 10/06/16 09:31 Dose: 100 mls/hr Piperacillin Sod/Tazobactam Sod (Zosyn 3.375gm Ivpb (Pre-Docked)) 50 mls @ 100 mls/hr IVPB Q8H-IV SOM PRN Reason: Protocol Last Admin: 10/06/16 09:30 Dose: 100 mls/hr Sodium Chloride (Normal Saline -) 1,000 mls @ 75 mls/hr IV ASDIR SOM Last Admin: 10/05/16 21:13 Dose: 75 mls/hr Morphine Sulfate (Morphine Injection -) 2 mg IVPUSH Q4H PRN PRN Reason: PAIN Oxycodone HCl (Roxicodone -) 5 mg PO Q6H PRN PRN Reason: PAIN Last Admin: 10/05/16 16:19 Dose: 5 mg Pantoprazole Sodium (Protonix -) 40 mg PO DAILY [facility] Last Admin: 10/06/16 09:31 Dose: 40 mg Constitutional: Yes: NAD Eyes: Yes: Conjunctiva Clear, EOM Intact HENT: Yes: Atraumatic, Normocephalic Neck: Yes: Supple, Trachea Midline Cardiovascular: Yes: Regular Rate and Rhythm Respiratory: Yes: Clear ...Clubbing: No Gastrointestinal: Yes: (+) BS. No: Tenderness, Rebound Edema: No Peripheral Pulses WNL: Yes Neurological: Yes: Alert, Oriented Laboratory Results - last 24 hr 10/05/16 10/06/16 10/06/16 20:30 05:37 05:37 WBC 9.2 D RBC 4.33 Hgb 11.8 Hct 35.3 MCV 81.5 MCHC 33.4 RDW 14.0 Plt Count 204 D MPV 9.4 Neutrophils % 73.8 Lymphocytes % 16.2 D Monocytes % 7.2 Eosinophils % 2.4 Basophils % 0.4 Sodium 146 H Potassium 4.4 Chloride 110 H Carbon Dioxide 26 Anion Gap 10 BUN 7 D Creatinine 0.6 Creat Clearance w eGFR > 60 Random Glucose 100 Lactic Acid 1.5 Calcium 9.6 Total Bilirubin 2.7 H D Direct Bilirubin 2.1 H D GGT 231 H AST 92 H D ALT 206 H D Alkaline Phosphatase 143 H C-Reactive Protein 9.3 H D Total Protein 6.0 L Albumin 3.0 L Total Amylase 82 D Lipase 134 10/06/16 05:37 WBC RBC Hgb Hct MCV MCHC RDW Plt Count MPV Neutrophils % Lymphocytes % Monocytes % Eosinophils % Basophils % Sodium Potassium Chloride Carbon Dioxide Anion Gap BUN Creatinine Creat Clearance w eGFR Random Glucose Lactic Acid 1.7 Calcium Total Bilirubin Direct Bilirubin GGT AST ALT Alkaline Phosphatase C-Reactive Protein Total Protein Albumin Total Amylase Lipase Problem List - Problems (1) Cholangitis Code(s): K83.0 - CHOLANGITIS (2) Sepsis Code(s): A41.9 - SEPSIS, UNSPECIFIED ORGANISM (3) Lactic acidosis Code(s): E87.2 - ACIDOSIS (4) Choledocholithiasis Code(s): K80.50 - CALCULUS OF BILE DUCT W/O CHOLANGITIS OR CHOLECYST W/O OBST Assessment/Plan Choledocholithiasis Sepsis Lactic Acidosis - IV antibiotics - IVF - pain control - PPI - Incentive Spirometry Dr Ortiz
--- NOTE | 2016-10-06 15:46 | PN ---
Physical Exam: SUBJECTIVE: Patient seen and examined at bedside. No overnight events. No new complaints. POD#2 s/p ERCP. Pain well controlled. Denies CP, LANG, SOB, palpitation, N/V. OBJECTIVE: Vital Signs Period Temp Pulse Resp BP Sys/Kumar Pulse Ox Last 24 Hr 98.0 F-99.8 F 64-89 20-20 114-158/63-94 97-98 GENERAL: AAOx3, NAD HEAD: NC/AT EYES: PERRL, EOMI, sclera anicteric, conjunctiva clear. No ptosis. ENT:moist mucous membranes. NECK: Supple, no jvd LUNGS: CTAB , no wheezing or rales HEART:RRR, S1S2 ABDOMEN: Soft, RUQ tenderness, ND, BS(+), no rebound or guarding. EXTREMITIES: 2+ pulses, warm, well-perfused, no edema. NEUROLOGICAL: Cranial nerves II through XII grossly intact. Normal speech, gait not observed. Laboratory Results - last 24 hr 10/05/16 10/06/16 10/06/16 20:30 05:37 05:37 WBC 9.2 D RBC 4.33 Hgb 11.8 Hct 35.3 MCV 81.5 MCHC 33.4 RDW 14.0 Plt Count 204 D MPV 9.4 Neutrophils % 73.8 Lymphocytes % 16.2 D Monocytes % 7.2 Eosinophils % 2.4 Basophils % 0.4 Sodium 146 H Potassium 4.4 Chloride 110 H Carbon Dioxide 26 Anion Gap 10 BUN 7 D Creatinine 0.6 Creat Clearance w eGFR > 60 Random Glucose 100 Lactic Acid 1.5 Calcium 9.6 Total Bilirubin 2.7 H D Direct Bilirubin 2.1 H D GGT 231 H AST 92 H D ALT 206 H D Alkaline Phosphatase 143 H C-Reactive Protein 9.3 H D Total Protein 6.0 L Albumin 3.0 L Total Amylase 82 D Lipase 134 10/06/16 05:37 WBC RBC Hgb Hct MCV MCHC RDW Plt Count MPV Neutrophils % Lymphocytes % Monocytes % Eosinophils % Basophils % Sodium Potassium Chloride Carbon Dioxide Anion Gap BUN Creatinine Creat Clearance w eGFR Random Glucose Lactic Acid 1.7 Calcium Total Bilirubin Direct Bilirubin GGT AST ALT Alkaline Phosphatase C-Reactive Protein Total Protein Albumin Total Amylase Lipase Active Medications Generic Name Dose Route Start Last Admin Trade Name Freq PRN Reason Stop Dose Admin Docusate Sodium 100 mg 10/05/16 22:00 10/06/16 13:01 Colace - PO Not Given TID SOM Fentanyl 25 mcg 10/04/16 16:00 Sublimaze Injection - IVPUSH 10/07/16 16:01 [id number] PRN PAIN Metronidazole 100 mls @ 100 mls/hr 10/04/16 18:00 10/06/16 09:31 Flagyl 500mg Premixed Ivpb - IVPB 100 mls/hr Q8H-IV SOM Administration Piperacillin Sod/Tazobactam Sod 50 mls @ 100 mls/hr 10/05/16 11:00 10/06/16 09: 30 Zosyn 3.375gm Ivpb (Pre-Docked) IVPB 100 mls/hr Q8H-IV SOM Administration Protocol Morphine Sulfate 2 mg 10/04/16 14:43 Morphine Injection - IVPUSH Q4H PRN PAIN Oxycodone HCl 5 mg 10/05/16 15:17 10/05/16 16:19 Roxicodone - PO 5 mg Q6H PRN Administration PAIN Pantoprazole Sodium 40 mg 10/05/16 10:00 10/06/16 09:31 Protonix - PO 40 mg DAILY SOM Administration ASSESSMENT/PLAN: 66 y/o F with h/o CCY who presented with fever and RUQ pain admitted for sepsis secondary to acute cholangitis. Problem List - Problems (1) Sepsis Assessment/Plan: * Secondary to Acute cholangitis * repeat lactic acid WNL * Continue Zosyn and Flagyl * Cultures show E.Coli in peripheral blood. * ID consult appreciated. (2) Cholangitis Assessment/Plan: * S/P ERCP with stone removal and drainage. * Advance diet * repeat CMP in AM * pain control (3) Lactic acidosis Assessment/Plan: * WNL Visit type - Emergency Visit Emergency Visit: Yes ED Registration Date: 10/04/16 Care time: The patient presented to the Emergency Department on the above date and was hospitalized for further evaluation of their emergent condition. - New Patient This patient is new to me today: No - Critical Care Critical Care patient: No
--- NOTE | 2016-10-06 16:07 | PN ---
Progress Note, Physician History of Present Illness: Awake, alert Ambulating No c/o abdominal pain Tolerating solid diet No vomiting + BM No fever/ chills - Current Medication List Current Medications: Active Medications Docusate Sodium (Colace -) 100 mg PO TID [facility] Last Admin: 10/06/16 13:01 Dose: Not Given Fentanyl (Sublimaze Injection -) 25 mcg IVPUSH [id number] PRN PRN Reason: PAIN Stop: 10/07/16 16:01 Metronidazole (Flagyl 500mg Premixed Ivpb -) 100 mls @ 100 mls/hr IVPB Q8H-IV SOM Last Admin: 10/06/16 09:31 Dose: 100 mls/hr Piperacillin Sod/Tazobactam Sod (Zosyn 3.375gm Ivpb (Pre-Docked)) 50 mls @ 100 mls/hr IVPB Q8H-IV SOM PRN Reason: Protocol Last Admin: 10/06/16 09:30 Dose: 100 mls/hr Morphine Sulfate (Morphine Injection -) 2 mg IVPUSH Q4H PRN PRN Reason: PAIN Oxycodone HCl (Roxicodone -) 5 mg PO Q6H PRN PRN Reason: PAIN Last Admin: 10/05/16 16:19 Dose: 5 mg Pantoprazole Sodium (Protonix -) 40 mg PO DAILY [facility] Last Admin: 10/06/16 09:31 Dose: 40 mg - Objective Vital Signs: Vital Signs Temperature 98.0 F 10/06/16 14:48 Pulse Rate 80 10/06/16 14:48 Respiratory Rate 20 10/06/16 14:48 Blood Pressure 149/69 10/06/16 14:48 O2 Sat by Pulse Oximetry (%) 97 10/06/16 08:00 Constitutional: Yes: No Distress, Obese Eyes: Yes: Conjunctiva Clear Cardiovascular: Yes: Regular Rate and Rhythm, S1, S2 Respiratory: Yes: CTA Bilaterally Gastrointestinal: Yes: Normal Bowel Sounds, Soft, Abdomen, Obese. No: Tenderness Edema: No Labs: CBC, BMP 10/06/16 05:37 10/06/16 05:37 INR, PTT INR 1.20 (0.82-1.09) H 10/05/16 06:02 Assessment/Plan E coli bacteremia/ biliary sepsis S/P ERCP/ stone extraction Leukocytosis- resolved Switch to cefazolin Tentative switch to po am
--- NOTE | 2016-10-06 16:58 | PN ---
GI Progress Note Subjective: No acute events States feeling much better - Objective Vital Signs: Vital Signs Temperature 98.0 F 10/06/16 14:48 Pulse Rate 80 10/06/16 14:48 Respiratory Rate 20 10/06/16 14:48 Blood Pressure 149/69 10/06/16 14:48 O2 Sat by Pulse Oximetry (%) 97 10/06/16 08:00 Constitutional: Calm Eyes: No: Sclera Icterus Cardiovascular: Yes: Regular Rate and Rhythm Respiratory: Yes: CTA Bilaterally Gastrointestinal Inspection: No: Distention ...Auscultate: Yes: Normoactive Bowel Sounds ...Palpate: No: Tenderness Edema: Yes Edema: LLE: Trace, RLE: Trace Labs: CBC, BMP 10/06/16 05:37 10/06/16 05:37 INR, PTT INR 1.20 (0.82-1.09) H 10/05/16 06:02 Hepatic Panel Total Bilirubin 2.7 mg/dL (0.2-1.0) H D 10/06/16 05:37 Direct Bilirubin 2.1 mg/dL (0.0-0.2) H D 10/06/16 05:37 AST 92 U/L (15-37) H D 10/06/16 05:37 ALT 206 U/L (12-78) H D 10/06/16 05:37 Alkaline Phosphatase 143 U/L (45-117) H 10/06/16 05:37 Albumin 3.0 g/dl (3.4-5.0) L 10/06/16 05:37 Laboratory Tests 10/05/16 10/06/16 06:02 05:37 Total Bilirubin 3.9 H D 2.7 H D Direct Bilirubin 2.9 H 2.1 H D AST 172 H D 92 H D ALT 267 H 206 H D Alkaline Phosphatase 122 H D 143 H Problem List - Problems (1) Cholangitis Assessment/Plan: Clinically improved Tolerating diet LFTs improving. Continue to monitor Length of Abx course per ID Code(s): K83.0 - CHOLANGITIS
[2016-10-06] MEDS: oxyCODONE HCL 5 MG TABLET PO PRN (17:26)
[2016-10-06] MEDS ORDERED: PT OWN MED DRAWER 7, Y5N ONE (17:59)
--- NOTE | 2016-10-06 17:59 | PN ---
Teaching Attending Note Name of Resident: Axel Esquivel ATTENDING PHYSICIAN STATEMENT I saw and evaluated the patient. I reviewed the resident's note and discussed the case with the resident. I agree with the resident's findings and plan as documented. SUBJECTIVE: RUQ pain, no fever orchills, mild nausea but no vomiting OBJECTIVE: NAD Cv : RRR Lungs : CTAB ext : no edema Abd : soft, ND , TTP in RUQ , no rebound tenderness or guarding ASSESSMENT AND PLAN: 66 y/o lady with h/o CCY who presented with fever , and not feeling well , she was found to have ascending cholangitis 1- Acute cholangitis : with severe sepsis and E coli bacteremia -cont Cefazolin - follow LFTs - dc IVF - pain control - advance diet
[2016-10-06] MEDS: CEFAZOLIN 1 GM in DEXTROSE 5%-WATER - 50 ML IVPB SCH (18:01)
[2016-10-07] MEDS: METRONIDAZOLE 500 MG PREMIXED 100 ML IVPB SCH ×2 (01:18→09:37)
[2016-10-07] MEDS: CEFAZOLIN 1 GM in DEXTROSE 5%-WATER - 50 ML IVPB SCH (01:18)
[2016-10-07] MEDS: DOCUSATE SODIUM 100 MG CAPSULE (FP) PO SCH ×2 (05:54→14:54)
[2016-10-07] MEDS ORDERED: CEFAZOLIN (PRE-DOCKED) 50 ML IVPB SCH (06:32)
[2016-10-07 08:08] LABS: BASOPHIL 0.5 % (0-2.0); EOSINOPHIL 3.7 % (0-4.5); MCH 27.2 pg (25.7-33.7); MCHC 33.3 g/dl (32.0-36.0); MEAN CELL VOLUME 81.7 fl (80-96); MEAN PLT VOLUME 8.8 fl (7.5-11.1); NEUTROPHILS 63.5 % (42.8-82.8); PLATELET COUNT 223 K/MM3 (134-434); RDW 13.9 % (11.6-15.6); WHITE BLOOD COUNT 7.4 K/mm3 (4.0-10.0)
[2016-10-07 08:31] LABS: ALBUMIN 3.2 g/dl (3.4-5.0); ANION GAP 9 (8-16); BILIRUBIN,TOTAL 2.1 mg/dL (0.2-1.0); CALCIUM 9.5 mg/dL (8.5-10.1); CO2 27 mmol/L (21-32); CREATININE 0.5 mg/dL (0.55-1.02); GLUCOSE,RANDOM 111 mg/dL (74-106); SGOT/AST 61 U/L (15-37); SGPT/ALT 165 U/L (12-78); TOT PROT 6.4 g/dl (6.4-8.2)
[2016-10-07 08:32] LABS: ALK PHOS 172 U/L (45-117)
[2016-10-07] MEDS ORDERED: PT OWN MED DRAWER 7, Y5N ONE (09:35)
[2016-10-07] MEDS: PANTOPRAZOLE 40 MG TABLET (FP) PO SCH (09:37)
--- NOTE | 2016-10-07 10:36 | PN ---
GI Progress Note Subjective: No abdominal pain No acute events States feeling well - Objective Vital Signs: Vital Signs Temperature 98 F 10/07/16 07:52 Pulse Rate 62 10/07/16 07:52 Respiratory Rate 18 10/07/16 07:52 Blood Pressure 153/87 10/07/16 07:52 O2 Sat by Pulse Oximetry (%) 96 10/06/16 21:00 Constitutional: Calm Eyes: No: Sclera Icterus Cardiovascular: Yes: Regular Rate and Rhythm Respiratory: Yes: CTA Bilaterally Gastrointestinal Inspection: No: Distention ...Auscultate: Yes: Normoactive Bowel Sounds ...Palpate: Yes: Other (palpable lap band port). No: Tenderness Edema: Yes Edema: LLE: Trace, RLE: Trace Neurological: Yes: Alert, Oriented Labs: CBC, BMP 10/07/16 07:50 10/07/16 07:50 INR, PTT INR 1.20 (0.82-1.09) H 10/05/16 06:02 Laboratory Tests 10/06/16 10/07/16 05:37 07:50 Total Bilirubin 2.7 H D 2.1 H D Direct Bilirubin 2.1 H D AST 92 H D 61 H D ALT 206 H D 165 H Alkaline Phosphatase 143 H 172 H D Problem List - Problems (1) Cholangitis Assessment/Plan: Clinically much improved with improvement of LFT's, tolerating PO Changing to PO abx per ID Monitor LFTs. if continued improvement no objection to D/C home tomorrow on PO abx f/u with Dr. Lilly as outpatient Code(s): K83.0 - CHOLANGITIS
--- NOTE | 2016-10-07 13:08 | PN ---
Teaching Attending Note Name of Resident: Axel Esquivel ATTENDING PHYSICIAN STATEMENT I saw and evaluated the patient. I reviewed the resident's note and discussed the case with the resident. I agree with the resident's findings and plan as documented. SUBJECTIVE: no fever or chills, no abd pain today , tolerated diet OBJECTIVE: NAD Cv : RRR Lungs : CTAB ext : no edema Abd : soft, ND , NT , NL BS ASSESSMENT AND PLAN: 66 y/o lady with h/o CCY who presented with fever , and not feeling well , she was found to have ascending cholangitis 1- Acute cholangitis : with severe sepsis and E coli bacteremia . much imporved . reepat cx neg so far tolerated diet . leukocytosis resolved - might be able to switch to po abx , will dx with ID - if so, will dc home - f/u with GI and ID . - blood work in 1 week
[2016-10-07 14:34] VITALS: BP 144/84; PULSE 70; TEMP 99.2
--- NOTE | 2016-10-07 15:50 | PN ---
Progress Note, Physician History of Present Illness: Doing well No abdominal pain Tolerating antibiotics No fever/ chills WBC, LFTs improved - Current Medication List Current Medications: Active Medications Docusate Sodium (Colace -) 100 mg PO TID SOM Last Admin: 10/07/16 14:54 Dose: Not Given Fentanyl (Sublimaze Injection -) 25 mcg IVPUSH [id number] PRN PRN Reason: PAIN Stop: 10/07/16 16:01 Metronidazole (Flagyl 500mg Premixed Ivpb -) 100 mls @ 100 mls/hr IVPB Q8H-IV SOM Last Admin: 10/07/16 09:37 Dose: 100 mls/hr Cefazolin Sodium (Ancef 1gm Ivpb (Pre-Docked)) 50 mls @ 100 mls/hr IVPB Q8H-IV SOM Last Admin: 10/07/16 09:36 Dose: 100 mls/hr Oxycodone HCl (Roxicodone -) 5 mg PO Q6H PRN PRN Reason: PAIN Last Admin: 10/06/16 17:26 Dose: 5 mg - Objective Vital Signs: Vital Signs Temperature 99.2 F 10/07/16 14:00 Pulse Rate 70 10/07/16 14:00 Respiratory Rate 20 10/07/16 14:00 Blood Pressure 144/84 10/07/16 14:00 O2 Sat by Pulse Oximetry (%) 96 10/06/16 21:00 Constitutional: Yes: No Distress Cardiovascular: Yes: Regular Rate and Rhythm, S1, S2 Respiratory: Yes: CTA Bilaterally Gastrointestinal: Yes: Normal Bowel Sounds, Soft, Abdomen, Obese. No: Tenderness Edema: No Labs: CBC, BMP 10/07/16 07:50 10/07/16 07:50 INR, PTT INR 1.20 (0.82-1.09) H 10/05/16 06:02 Assessment/Plan E coli bacteremia/ biliary sepsis S/P ERCP/ stone extraction Leukocytosis- resolved Switch to levaquin 500mg po qd for additional 10d No objection to discharge
--- NOTE | 2016-10-07 16:02 | DS ---
Physical Exam: SUBJECTIVE: Patient seen and examined at bedside. No overnight events. No new complaints. POD#3 s/p ERCP. Pain well controlled. Denies CP, LANG, SOB, palpitation, N/V. OBJECTIVE: Vital Signs Period Temp Pulse Resp BP Sys/Kumar Pulse Ox Last 24 Hr 98 F-99.2 F 60-77 18-20 114-153/72-90 96 PHYSICAL EXAM GENERAL: AAOx3, NAD HEAD: NC/AT EYES: PERRL, EOMI, sclera anicteric, conjunctiva clear. No ptosis. ENT:moist mucous membranes. NECK: Supple, no jvd LUNGS: CTAB , no wheezing or rales HEART:RRR, S1S2 ABDOMEN: Soft, RUQ tenderness, ND, BS(+), no rebound or guarding. EXTREMITIES: 2+ pulses, warm, well-perfused, no edema. NEUROLOGICAL: Cranial nerves II through XII grossly intact. Normal speech, gait not observed. LABS Laboratory Results - last 24 hr 10/07/16 10/07/16 07:50 07:50 WBC 7.4 RBC 4.60 Hgb 12.5 Hct 37.6 MCV 81.7 MCHC 33.3 RDW 13.9 Plt Count 223 MPV 8.8 Neutrophils % 63.5 Lymphocytes % 24.5 D Monocytes % 7.8 Eosinophils % 3.7 Basophils % 0.5 Sodium 144 Potassium 4.4 Chloride 108 H Carbon Dioxide 27 Anion Gap 9 BUN 7 Creatinine 0.5 L Creat Clearance w eGFR > 60 Random Glucose 111 H Calcium 9.5 Total Bilirubin 2.1 H D AST 61 H D ALT 165 H Alkaline Phosphatase 172 H D Total Protein 6.4 Albumin 3.2 L IMAGING: * [id number] CT/ABDOMEN PELVIS CT W/O CONTR HISTORY PROVIDED: Abdominal pain TECHNIQUE: Sequential axial images were obtained from the domes of the diaphragm through the symphysis pubis. The study is markedly limited without the use of any contrast material. The lung bases are clear. The patient is S/P gastric banding. The band appears to be in adequate position around the proximal stomach. The liver, spleen, pancreas, adrenal glands and kidneys demonstrate no gross abnormalities. The gallbladder has been removed. There is prominence of the common bile duct which measures approximately 1.3 cm. There is also faint hyperdensities within the distal CBD which could represent choledocholithiasis. Follow-up ultrasonography and/or MRCP now recommended. There is no evidence of intra-abdominal or retroperitoneal lymphadenopathy or fluid collections. There is no evidence of pneumoperitoneum, bowel obstruction or intra-abdominal abscess. There is no CT evidence of acute appendicitis or diverticulitis. Examination of the pelvis demonstrates no evidence of pelvic masses, fluid collections or lymphadenopathy. The uterus has been removed. There is no evidence of acute bony pathology. IMPRESSION: Limited study, S/P gastric banding and cholecystectomy. There is prominence of the CBD with possible choledocholithiasis. Clinical correlation and follow-up recommended. Please see above discussion. Reported By: Cy Stevens MD 10/04/16 0925 Microbiology 10/06/16 08:10 Blood - Peripheral Venous Blood Culture - Preliminary NO GROWTH OBTAINED AFTER 96 HOURS, INCUBATION TO CONTINUE FOR 1 DAYS. 10/06/16 08:20 Blood - Peripheral Venous Blood Culture - Preliminary NO GROWTH OBTAINED AFTER 96 HOURS, INCUBATION TO CONTINUE FOR 1 DAYS. 10/04/16 08:00 Blood - Peripheral Venous Blood Culture - Final Escherichia Coli 10/04/16 08:15 Blood - Peripheral Venous Blood Culture - Final Escherichia Coli 10/04/16 11:00 Urine - Urine Clean Catch Urine Culture - Final NO GROWTH OBTAINED HOSPITAL COURSE: 66 y/o F with h/o CCY who presented with fever and RUQ pain admitted for sepsis secondary to acute cholangitis.CT abdomen showed prominence of the CBD with possible choledocholithiasis. She was then started on IVF and broad spectrum antibiotics. She was evaluated by Dr. Lilly who took her for ERCP.Stone was removed and CBD drained. SHe tolerated the procedure well and cultures were sent. She tolerated advancement of diet and pain was well controlled. Blood cultures reveled E.Coli sensitive to Levaquin and sent home with 12 days course of oral levaquin to complete a 14 day course fro 1st negative blood culture. Patient is advised to follow up with GI in one week with blood work to evaluate for resolution of transaminitis. She also has follow up with ID. She is in stable condition at time of discharge and instructed to return to ED if pain returns or condition worsens. Date of Admission:10/04/16 Date of Discharge: 10/07/16 Minutes to complete discharge: 36 Discharge Summary Reason For Visit: CHOLETHIASIS AND ACUTE CHOLECYSTITIS W OBSTRU Current Active Problems Cholangitis (Acute) Choledocholithiasis (Acute) Cholelithiasis and acute cholecystitis with obstruction (Acute) Lactic acidosis (Acute) Sepsis (Acute) Condition: Stable - Instructions Diet, Activity, Other Instructions: -Please follow up with Dr. Lilly in one week. -Please follow up with Dr. Dee in one week. -You have been given a script for Levaquin which you will take once a day for 12 more days. -Please go for your lab work in one week and bring it with you to your appointment with field case manager. -Low fat diet -Increase activity as tolerated. Referrals: Luis Daniel Dee MD [Staff Physician] - 1 Week Alicia Lilly MD [Staff Physician] - 1 Week Disposition: HOME - Home Medications Comprehensive Discharge Medication List: Ambulatory Orders Meloxicam [Mobic] 15 mg PO DAILY 10/04/16 Oxycodone HCl/Acetaminophen [Percocet 5-325 mg Tablet] 1 tab PO BID 10/04/16 Pantoprazole Sodium [Protonix] 40 mg PO DAILY 10/04/16 Levofloxacin [Levaquin] 500 mg PO DAILY #14 tablet 10/07/16 Miscellaneous Drug Not In Syst [Outpatient Lab Test] 1 each ASDIR #1 misc Problem List - Problems (1) Sepsis (2) Cholangitis (3) Lactic acidosis This patient is new to me today: No Emergency Visit: Yes ED Registration Date: 10/04/16 Care time: The patient presented to the Emergency Department on the above date and was hospitalized for further evaluation of their emergent condition. Critical Care patient: No - Discharge Referral Referred to [facility] Med [facility] No
--- NOTE | 2016-10-07 18:29 | EKG ---
Test Reason : Blood Pressure : / mmHG Vent. Rate : 064 BPM Atrial Rate : 064 BPM P-R Int : 184 ms QRS Dur : 092 ms QT Int : 456 ms P-R-T Axes : 016 010 033 degrees QTc Int : 470 ms NORMAL SINUS RHYTHM NO PREVIOUS ECGS AVAILABLE Confirmed by MD JOHNSTON MARJORY ([id number]) on 10/07/2016 6:29:06 PM Referred By: DR MEHTA Confirmed By:JERAMIE JOHNSTON MD
== END 2016-10-07 21:14 | disposition home or self-care (01) | DRG 872 ==
LOC: FER 05:36 → J4W 12:39
PROVIDERS: ADMIT Internal Medicine; ATTEND Internal Medicine
PROC: 3E0G8GC Introduction of Other Therapeutic Substance into Upper GI, Via Natural or Artificial Opening Endoscopic (ICD-10-PCS; 2016-10-04)
PROC: 0FC98ZZ Extirpation of Matter from Common Bile Duct, Via Natural or Artificial Opening Endoscopic (ICD-10-PCS; principal; 2016-10-04 14:00)
DX: A41.51 Sepsis due to Escherichia coli [E. coli] (principal); K83.0 Cholangitis; E87.2 Acidosis; R17 Unspecified jaundice; K80.01 Calculus of gallbladder with acute cholecystitis with obstruction; E27.1 Primary adrenocortical insufficiency; R65.20 Severe sepsis without septic shock; K44.9 Diaphragmatic hernia without obstruction or gangrene; E66.01 Morbid (severe) obesity due to excess calories; Z68.36 Body mass index [BMI] 36.0-36.9, adult; Z98.84 Bariatric surgery status; L40.8 Other psoriasis; R94.5 Abnormal results of liver function studies; M19.90 Unspecified osteoarthritis, unspecified site; K57.90 Diverticulosis of intestine, part unspecified, without perforation or abscess without bleeding; D72.828 Other elevated white blood cell count; Z87.891 Personal history of nicotine dependence; Z96.653 Presence of artificial knee joint, bilateral
CPT/HCPCS: 36415; 71010-TC; 74176-TC; 76000-TC; 80053; 81003; 81015; 82150; 82248; 82977; 83605; 83690; 85025; 85027; 85610; 86140; 87040; 87086; 87186; 93005; 99283-25